=== PATIENT | female | born 1945 | race Caucasian/White ===

== ENCOUNTER 2021-05-23 08:44 | Outpatient (CLI) | payer MEDICARE ==
[2021-05-23 09:32] LABS: CREATININE 0.7 mg/dL (0.4-1.0)
[2021-05-23] MEDS ORDERED: IOPAMIDOL-300 100 ML VIAL IVP ONE (10:32)
[2021-05-23] MEDS ORDERED: IOPAMIDOL-300 50 ML VIAL PO ONE (10:33)
--- NOTE | 2021-05-23 18:24 | CT Report ---
PROCEDURE: Abdomen/Pelvis W INDICATIONS: NEPHROLITHIASIS, ABD PAIN, DIARRHEA CONTRAST: IV CONTRAST: Isovue 300 ml: 100 PO CONTRAST: Isovue 300 ml50 TECHNIQUE: After the administration of contrast, 5 mm thick sections acquired from the diaphragms to the sym physis. 5 mm thick coronal and sagittal reformats were acquired. For radiation dose reduction, the following was used: automated exposure control, adjustment of mA and/or kV according to patient size . COMPARISON: None. FINDINGS: Image quality: Excellent. ABDOMEN: Lung bases: Lung bases are clear. Heart size is normal. Solid organs: The liver has multiple hypodensities, likely cysts or hemangiomas. The largest are in h epatic segment IV a measuring 2.4 cm and in hepatic segment 6 measuring 1.8 cm, with density of 17 an d 23 HU respectively. Comparison to prior imaging is recommended, if no prior imaging is available re commend [address] to exclude neoplasm.. Gallbladder is status post cholecystectomy Biliary system is non dilated. Pancreas enhances normally. No adrenal nodules. Kidneys demonstrate normal size an d enhancement, without hydronephrosis. Nonobstructing kidney stones are present on the left, the lar gest in the superior pole measuring 9 x 4 mm. Peritoneum and bowel: Bowel loops demonstrate normal wall thickness and caliber. There is diverticul osis without evidence of diverticulitis in the left colon and sigmoid colon. Contrast is present in t he rectum consistent with rapid bowel transit and history of diarrhea. No free fluid or air. Nodes and vessels: No retroperitoneal or mesenteric adenopathy by size criteria. Aorta and inferior vena cava are normal in size. The aorta has atherosclerotic calcifications. Miscellaneous: No ventral hernias. PELVIS: Genitourinary: Bladder wall thickness is normal. Miscellaneous: No inguinal hernias or adenopathy. Bones: Degenerative disc disease at L3-4 and L4-5. Status post right hip replacement. No suspicious bony lesions. No vertebral body compression fractures. IMPRESSION: 1. No acute abdominal or pelvic abnormality. 2. Diverticulosis without evidence of diverticulitis. 3. Rapid bowel transit of contrast to the rectum consistent with enteritis. 4. Multiple hepatic hypodensities, likely cysts and/or hemangiomas, recommend comparison with prior i maging if available or [address] to rule out neoplasm. Reviewed by: Son Gaffney on 05/23/2021 5:22 PM AKST Approved by: Son Gaffney on 05/23/2021 5:22 PM MARII Station ID: [id number]
== END 2021-05-23 08:45 | disposition home or self-care (01) ==
LOC: LAB 08:44
PROVIDERS: ATTEND Internal Medicine
DX: Z79.899 Other long term (current) drug therapy (principal); R10.9 Unspecified abdominal pain; R19.7 Diarrhea, unspecified; Z87.442 Personal history of urinary calculi; K57.30 Diverticulosis of large intestine without perforation or abscess without bleeding; K59.89 Other specified functional intestinal disorders; R93.2 Abnormal findings on diagnostic imaging of liver and biliary tract
CPT/HCPCS: 36415; 82565

== ENCOUNTER 2021-06-09 08:39 | Outpatient (CLI) | payer MEDICARE ==
[2021-06-09] MEDS ORDERED: iohexoL-300 100 ML VIAL ONE (08:53)
[2021-06-09] MEDS ORDERED: iohexoL-300 100 ML VIAL IVP ONE (09:43)
--- NOTE | 2021-06-09 16:34 | CT Report ---
PROCEDURE: ABDOMEN W/WO INDICATIONS: LIVER LESIONS CONTRAST: IV CONTRAST: Optiray 320 ml: 100 PO CONTRAST: *NO PO CONTRAST TECHNIQUE: Noncontrast 5 mm thick sections acquired from the diaphragms to the symphysis. Arterial phase and josiah ous phase and delayed imaging of the liver was performed. 5 mm coronal and sagittal reformats were th en performed. For radiation dose reduction, the following was used: automated exposure control, adj ustment of mA and/or kV according to patient size. COMPARISON: CT abdomen and pelvis dated 05/23/2021. FINDINGS: Image quality: Excellent. Lung bases: Lung bases are clear. Heart size is normal. Liver: Numerous small low-density liver lesions are again noted. None of these lesions are suspicious by imaging criteria, consistent with cysts versus hemangiomata. No suspicious liver masses. Adrenal glands: Unremarkable Other solid organs: Spleen is unremarkable. Gallbladder is surgically absent. Mildly prominent biliar y tree, within normal limits postcholecystectomy Pancreas enhances normally. Kidneys are normal in s ize and enhancement. No hydronephrosis. Nonobstructing upper pole left renal stones. Peritoneum and bowel: Unenhanced bowel loops are normal in caliber and wall thickness. No free flui d or air. Nodes and vessels: No retroperitoneal or mesenteric adenopathy by size criteria. Aorta and inferior vena cava are normal in size. Miscellaneous: No ventral hernias. Bones: No suspicious bony lesions. No vertebral body compression fractures. IMPRESSION: 1. The multiple low-density liver lesions are not suspicious. They are consistent with cysts versus h emangiomata. 2. Left nephrolithiasis.. Reviewed by: Vickey Louise MD on 06/09/2021 4:33 PM PST Approved by: Vickey Louise MD on 06/09/2021 4:33 PM PST Station ID: [id number]
== END 2021-06-09 08:40 | disposition home or self-care (01) ==
LOC: DI 08:39
PROVIDERS: ATTEND Internal Medicine
DX: K76.89 Other specified diseases of liver (principal); N20.0 Calculus of kidney
CPT/HCPCS: 74170; Q9967

== ENCOUNTER 2021-06-10 07:51 | Outpatient (CLI) | payer MEDICARE ==
--- NOTE | 2021-06-19 10:45 | Mammography Report ---
BILATERAL DIGITAL SCREENING MAMMOGRAM 3D/2D: 06/10/2021 CLINICAL: Routine screening. Additional films were requested but not obtained. The tissue of both breasts is predominantly fatty. No significant masses, calcifications, or other findings are seen in either breast. IMPRESSION: NEGATIVE There is no mammographic evidence of malignancy. A 1 year screening mammogram is recommended. This exam was interpreted at Station ID: [id number]. NOTE: For mammograms, a report in lay terms will be sent to the patient. Approximately 15% of breast malignancies will not be visualized mammographically. In the management of a palpable breast mass, a negative mammogram must not discourage biopsy of a clinically suspicious lesion. Electronically Signed By: Mo melendez/sherman:06/18/2021 08:56:39 ACR BI-RADS Category 1: Negative 3341F PARENCHYMAL PATTERN: (F) - The breast(s) demonstrate(s) diffuse fatty replacement. BI-RADS CATEGORY: (1) - 1 RECOMMENDATION: (ANNUAL) - Recommend routine annual screening mammography. [id number] 1 year screening LATERALITY: (B)
== END 2021-06-10 07:52 | disposition home or self-care (01) ==
LOC: DI.N 07:51
PROVIDERS: ATTEND Internal Medicine
DX: Z12.31 Encounter for screening mammogram for malignant neoplasm of breast (principal)

== ENCOUNTER 2021-07-06 09:56 | Outpatient (CLI) | payer MEDICARE | END 2021-07-06 09:57 | disposition home or self-care (01) | LOC: LAB 09:56 | PROVIDERS: ATTEND Surgery | DX: Z11.9 Encounter for screening for infectious and parasitic diseases, unspecified (principal) | CPT/HCPCS: 81599; 87045; 87177; 87209; 87427; 87449; 87493 ==

== ENCOUNTER 2021-07-22 08:57 | Day surgery (SDC) | payer MEDICARE ==
[2021-07-22] MEDS ORDERED: LACTATED RINGERS 1,000 ML IV ONE (09:21)
--- NOTE | 2021-07-22 09:36 | ANESTHESIA ---
Pre-Anesthesia VS, & Labs - Diagnosis screening - Procedure colonoscopy Vital Signs: Temp Pulse Resp BP Pulse Ox 36.4 C L 57 L 12 141/81 H 96 07/22/21 09:10 07/22/21 09:10 07/22/21 09:10 07/22/21 09:10 07/22/21 09:10 Height: 5 ft 2 in Weight (kg): 69.2 kg Body Mass Index: 27.8 BMI Classification: Overweight - NPO >8 hours - Is Patient ?: No - Lab Results Lab results reviewed: Yes Home Medications and Allergies Home Medications: Ambulatory Orders Timolol 0.5% Ophth Drops [Timoptic 0.5% Ophth Drops] 1 drops OPTH DAILY 07/21/21 Timolol 0.5% Ophth Drops [Timoptic 0.5% Ophth Drops] 1 drops OPTH DAILY 07/21/21 Allergies/Adverse Reactions: Allergies Allergy/AdvReac Type Severity Reaction Status Date / Time Penicillins Allergy Rash Verified 07/22/21 09:11 Sulfa (Sulfonamide Allergy Rash Verified 07/22/21 09:11 Antibiotics) Anes History & Medical History - Anesthetic History Anesthesia Complications: reports: No previous complications Family history of Anesthesia Complications: Denies Family history of Malignant Hyperthermia: Denies - Medical History Cardiovascular: reports: None Pulmonary: reports: None Gastrointestinal: reports: None Urinary: reports: None Musculoskeletal: reports: None Endocrine/Autoimmune: reports: None Skin: reports: None - Surgical History General: reports: Cholecystectomy Urologic: reports: Ureterolithotomy (stones) Gynecologic: reports: Hysterectomy Orthopedic: reports: Hip replacement Exam General: Alert, Oriented x3, Cooperative, No acute distress Dental: WNL Mouth Openin Fingerbreadth Neck Mobility: Normal Mallampati classification: II Plan Anesthesia Type: General, Total IV Consent for Procedure(s) Verified and Reviewed: Yes Code Status: Attempt Resuscitation ASA classification: 2-Mild systemic disease Is this case an emergency?: No
[2021-07-22] MEDS ORDERED: PROPOFOL 500 MG/50 ML 500 MG/50 ML VIAL ONE (12:58)
[2021-07-22] MEDS ORDERED: LACTATED RINGERS 100 ML IV ONE (13:36)
--- NOTE | 2021-07-22 14:44 | ANESTHESIA POST OP EVALUATION ---
Anesthesia Post Eval - Post Anesthesia Eval Vitals: Last Vital Signs Temp 36.2 C L 07/22/21 14:39 Pulse 55 L 07/22/21 14:39 Resp 16 07/22/21 14:39 BP 174/66 H 07/22/21 14:39 Pulse Ox 97 07/22/21 14:39 CV Function Including HR & BP: Stable Pain Control: Satisfactory Nausea & Vomiting: Negative Mental Status: Baseline Respiratory Status: Airway Patent Hydration Status: Satisfactory Anesthesia Complications: None
--- NOTE | 2021-07-22 14:55 | XRAY Report ---
PROCEDURE: Abdomen 2 View X-Ray INDICATIONS: ABDOMINAL PAIN POST COLONOSCOPY, ?FREE AIR TECHNIQUE: 2 views of the abdomen were acquired. COMPARISON: CT abdomen 06/09/2021 FINDINGS: Surgical changes and devices: None. Bowel: No evidence of pneumoperitoneum, with caveat that the portion of the abdomen overlying the hep atic dome is excluded from the [id number]. Normal bowel gas pattern. Soft tissues: No masses; visualized solid organ contours appear normal in size. No suspicious abdom inal calcifications. Bones: No suspicious bony abnormalities. IMPRESSION: No evidence of pneumoperitoneum. Reviewed by: Daniel Padilla MD on 07/22/2021 2:53 PM PST Approved by: Daniel Padilla MD on 07/22/2021 2:53 PM PST Station ID: [id number]
[2021-07-22 15:17] VITALS: BP 155/71
== END 2021-07-22 08:58 | disposition home or self-care (01) ==
LOC: SDS 08:57
PROVIDERS: ATTEND Surgery
PROC: 0DBL8ZX Excision of Transverse Colon, Via Natural or Artificial Opening Endoscopic, Diagnostic (ICD-10-PCS; 2021-07-22)
PROC: 0DBN8ZX Excision of Sigmoid Colon, Via Natural or Artificial Opening Endoscopic, Diagnostic (ICD-10-PCS; 2021-07-22)
PROC: 0DBH8ZX Excision of Cecum, Via Natural or Artificial Opening Endoscopic, Diagnostic (ICD-10-PCS; principal; 2021-07-22 11:30)
DX: R19.7 Diarrhea, unspecified (principal); D12.0 Benign neoplasm of cecum; K57.30 Diverticulosis of large intestine without perforation or abscess without bleeding; K64.8 Other hemorrhoids; G89.18 Other acute postprocedural pain; R10.9 Unspecified abdominal pain; Z80.0 Family history of malignant neoplasm of digestive organs; Z86.010 Personal history of colon polyps
CPT/HCPCS: 45380; 74019; J7120

== ENCOUNTER 2023-05-04 08:10 | Outpatient (CLI) | payer MEDICARE ==
[2023-05-04 08:27] LABS: BASOPHILS # (AUTO) 0.1 10^3/uL (0.0-0.1); BASOPHILS % (AUTO) 0.8 %; EOSINOPHILS # (AUTO) 0.2 10^3/uL (0.0-0.7); EOSINOPHILS % (AUTO) 3.3 %; HCT - HEMATOCRIT 43.9 % (37.0-47.0); HGB - HEMOGLOBIN 14.2 g/dL (12.0-16.0); LYMPHOCYTES # (AUTO) 2.7 10^3/uL (1.5-3.5); LYMPHOCYTES % (AUTO) 42.5 %; MEAN CORPUSCULAR HEMOGLOBIN 31.1 pg (27.0-31.0); MEAN CORPUSCULAR HGB CONC 32.3 g/dL (32.0-36.0); MEAN CORPUSCULAR VOLUME 96.1 fL (81.0-99.0); MEAN PLATELET VOLUME 9.1 fL (7.9-10.8); MONOCYTES # (AUTO) 0.6 10^3/uL (0.0-1.0); MONOCYTES % (AUTO) 9.7 %; NEUTROPHILS # (AUTO) 2.7 10^3/uL (1.5-6.6); NEUTROPHILS % (AUTO) 43.4 %; PLT - PLATELET COUNT 263 10^3/uL (130-450); RED BLOOD COUNT 4.57 10^6/uL (4.20-5.40); WHITE BLOOD COUNT 6.3 x10^3/uL (4.8-10.8)
[2023-05-04 09:01] LABS: ALBUMIN 4.6 g/dL (3.2-5.5); ALBUMIN/GLOBULIN RATIO 1.5 (1.0-2.2); ALKALINE PHOSPHATASE 51 IU/L (42-121); ALT ALANINE AMINOTRANSFERASE 14 IU/L (10-60); AST ASPARTATE AMINOTRANSFERASE 18 IU/L (10-42); BILIRUBIN,TOTAL 0.5 mg/dL (0.2-1.0); BUN - BLOOD UREA NITROGEN 16 mg/dL (6-20); CALCIUM 9.8 mg/dL (8.5-10.3); CARBON DIOXIDE - CO2 30 mmol/L (21-32); CHLORIDE 103 mmol/L (101-111); CHOL/HDL RATIO 2.8 (<4.4); CHOLESTEROL 296 mg/dL; CREATININE 0.7 mg/dL (0.6-1.3); GFR - MDRD 81 (>89); GLUCOSE 92 mg/dL (74-104); HDL CHOLESTEROL 106 mg/dL; LDL CHOLESTEROL,CALCULATED 165 mg/dL; LDL/HDL RATIO 1.6 (<4.4); POTASSIUM 4.1 mmol/L (3.5-4.5); SODIUM 139 mmol/L (135-145); TOTAL PROTEIN 7.7 g/dL (6.4-8.9); TRIGLYCERIDES 123 mg/dL (48-352); VLDL CHOLESTEROL 25 mg/dL
[2023-05-04 09:04] LABS: THYROID STIMULATING HORMONE 2.28 uIU/mL (0.34-5.60)
[2023-05-05 20:08] LABS: HCV AB Non Reactive (Non Reactive)
== END 2023-05-04 08:11 | disposition home or self-care (01) ==
LOC: LAB 08:10
PROVIDERS: ATTEND Internal Medicine
DX: Z00.00 Encounter for general adult medical examination without abnormal findings (principal); R03.0 Elevated blood-pressure reading, without diagnosis of hypertension; H40.9 Unspecified glaucoma; N20.0 Calculus of kidney; Z79.899 Other long term (current) drug therapy; C44.90 Unspecified malignant neoplasm of skin, unspecified; Z11.59 Encounter for screening for other viral diseases
CPT/HCPCS: 36415; 80053; 80061; 83721; 84443; 85025; 86803

== ENCOUNTER 2023-05-20 09:50 | Outpatient (CLI) | payer MEDICARE ==
--- NOTE | 2023-05-23 07:49 | Mammography Report ---
BILATERAL DIGITAL SCREENING MAMMOGRAM 3D/2D: 05/20/2023 CLINICAL: Routine screening. Comparison is made to exam dated: 06/10/2021 mammogram - [facility]. Both breasts are almost entirely fatty (category a/<25% glandular tissue). There is an asymmetry in the left breast posterior depth lateral region seen on the craniocaudal view only, partially seen, not within view on prior. No other significant masses, calcifications, or other findings are seen in either breast. IMPRESSION: INCOMPLETE: NEEDS ADDITIONAL IMAGING EVALUATION The asymmetry in the left breast is indeterminate, partially seen, not within view on prior. Additio nal views with possible ultrasound are recommended. Based on the Tyrer Cuzick model (a risk assessment model) the patients lifetime risk is 0.9% and her 10 year risk is 0.0%. According to the ACR, ACS, and NCCN guidelines, an annual breast MRI exam yovanny g with mammogram is recommended if the patients lifetime risk is 20% or greater. This exam was interpreted at Station ID: [id number]. NOTE: For mammograms, a report in lay terms will be sent to the patient. Approximately 15% of breast malignancies will not be visualized mammographically. In the management of a palpable breast mass, a negative mammogram must not discourage biopsy of a clinically suspicious lesion. Electronically Signed By: Omar Dickey M.D. lc/:05/20/2023 11:51:31 ACR BI-RADS Category 0: Incomplete 3340F PARENCHYMAL PATTERN: (F) - The breast(s) demonstrate(s) diffuse fatty replacement. BI-RADS CATEGORY: (0) - 0 Mammo and [place] [id number] Immediate follow-up LATERALITY: (B)
== END 2023-05-20 09:51 | disposition home or self-care (01) ==
LOC: DI 09:50
PROVIDERS: ATTEND Internal Medicine
DX: Z12.31 Encounter for screening mammogram for malignant neoplasm of breast (principal); R92.8 Other abnormal and inconclusive findings on diagnostic imaging of breast

== ENCOUNTER 2023-06-17 08:40 | Outpatient (CLI) | payer MEDICARE ==
--- NOTE | 2023-06-17 12:48 | Mammography Report ---
UNILATERAL LEFT DIGITAL DIAGNOSTIC MAMMOGRAM 3D/2D WITH SPOT COMPRESSION: 06/17/2023 CLINICAL: Patient returns today to evaluate a focal asymmetry in the left breast. Comparison is made to exams dated: 05/20/2023 mammogram and 06/10/2021 mammogram - [facility]. The left breast is almost entirely fatty (category a/<25% glandular tissue). There is an asymmetry with a circumscribed margin in the left breast posterior depth lateral region s een on the craniocaudal view only. No other significant masses or calcifications are seen in the breast. IMPRESSION: BENIGN There is no mammographic evidence of malignancy. The asymmetry in the left breast is consistent with a lymph node and is benign. Exam findings were conveyed to the patient. A 1 year screening mammogram is recommended. Based on the Tyrer Cuzick model (a risk assessment model) the patients lifetime risk is 0.9% and her 10 year risk is 0.0%. According to the ACR, ACS, and NCCN guidelines, an annual breast MRI exam yovanny g with mammogram is recommended if the patients lifetime risk is 20% or greater. This exam was interpreted at Station ID: [id number]. NOTE: For mammograms, a report in lay terms will be sent to the patient. Approximately 15% of breast malignancies will not be visualized mammographically. In the management of a palpable breast mass, a negative mammogram must not discourage biopsy of a clinically suspicious lesion. Electronically Signed By: Thanh Chi M.D. slc/:06/17/2023 09:10:36 ACR BI-RADS Category 2: Benign Finding(s) 3342F PARENCHYMAL PATTERN: (F) - The breast(s) demonstrate(s) diffuse fatty replacement. BI-RADS CATEGORY: (2) - 2 Mammogram [id number] 1 year screening LATERALITY: (B)
== END 2023-06-17 08:41 | disposition home or self-care (01) ==
LOC: DI 08:40
PROVIDERS: ATTEND Internal Medicine
DX: R92.8 Other abnormal and inconclusive findings on diagnostic imaging of breast (principal)